=== PATIENT | male | born 1940 | race Caucasian/White ===

== ENCOUNTER 2020-02-29 06:31 | Observation (INO) | payer OTHER ==
[2020-02-24 10:16] LABS: ABSOLUTE BASOPHILS 0.1 thou/uL (0.0-0.2); ABSOLUTE EOSINOPHILS 0.1 thou/uL (0.0-0.7); ABSOLUTE LYMPHOCYTES 1.1 thou/uL (0.8-5.3); ABSOLUTE MONOCYTES 0.5 thou/uL (0.0-1.2); ABSOLUTE NEUTROPHILS 5.2 thou/uL (1.6-8.1); EOSINOPHILS 0.8 %; HEMATOCRIT 43.7 % (42.0-52.0); HEMOGLOBIN 15.1 gm/dL (14.0-18.0); LYMPHOCYTES 15.8 %; MCH 31.3 pg (26.0-34.0); MCHC 34.4 g/dL (28.0-37.0); MCV 90.9 fL (80.0-100.0); MONOCYTES 7.4 %; MPV 8.9 fl. (7.2-11.1); NUCLEATED RBCS 0 /100WBC; PLATELET COUNT* 165 thou/uL (150-400); RBC 4.81 mil/uL (4.50-6.00); RDW-CV 14.4 % (10.5-14.5); WBC 6.9 thou/uL (4.0-11.0)
[2020-02-24 10:27] LABS: APTT 27.7 Seconds (25.0-31.3); PROTIME 10.7 Seconds (9.20-11.50)
[2020-02-24 10:30] LABS: ALBUMIN 3.4 g/dL (3.4-5.0); CALCIUM 8.8 mg/dL (8.5-10.1); CREATININE 1.3 mg/dL (0.6-1.3); POTASSIUM 4.1 mmol/L (3.5-5.1); TOTAL BILIRUBIN 0.8 mg/dL (<0.1-1.0); TOTAL PROTEIN 7.3 g/dL (6.4-8.2)
[2020-02-24 11:21] LABS: ESR (SEDRATE) 8 mm/hr (0-20)
--- NOTE | 2020-02-24 14:19 | EKG ---
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1940 Requested By: Deshawn Hargrove Order Number: [id number] Brie MD: Brandon Joshi Measurements Intervals [place] Rate: 71 P: 22 CO: 199 QRS: -47 QRSD: 89 T: -12 QT: 363 QTc: 395 Interpretive Statements Sinus rhythm low voltage Atrial premature complex Probable anterolateral infarct, old Compared to ECG 08/30/2016 08:15:49 Atrial premature complex(es) now present Myocardial infarct finding now present Electronically Signed On 02-24-2020 14:18:03 CDT by Brandon Joshi [email or web address] <ELECTRONICALLY SIGNED> By: Brandon Joshi MD, [facility] 02/24/20 1418 1031 1031 Brandon Joshi MD, [facility] /EPI
[2020-02-25 02:07] LABS: GLYCOHEMOGLOBIN (HGB A1C) 5.3 % (4.8-5.6)
[~2020-02-29] VITALS: Ht 172.7 cm; Wt 88.5 kg
--- NOTE | ~2020-02-29 | OP ---
[address] [place] [address] OPERATIVE REPORT Name: SHIVA ARMAS Room: [address] M.R.#: [id number] Admission: 02/29/20 Attend Phys: Deshawn Hargrove DO Discharge: Date of : 38 Report #: [id number] THIS REPORT FOR: //name// cc: Singh Patel MD, Bruce D. MD ~ THIS REPORT FOR: //name// CC: Singh Hargrove DICTATED BY: Travis Kohler DO DATE OF SERVICE: 02/29/2020 PREOPERATIVE DIAGNOSIS: Right hip advanced degenerative joint disease. POSTOPERATIVE DIAGNOSIS: Right hip advanced degenerative joint disease. PROCEDURE PERFORMED: Right total hip arthroplasty. SURGEON: Deshawn Hargrove DO SEMICONDUCTOR PACKAGE SYMBOL STAMPER: Travis Kohler DO SECOND MEDICAL COLLECTOR: Mitch Flannery DO ANESTHESIA: Spinal with moderate sedation. SURGERY PERFORMED: Right total hip arthroplasty. ESTIMATED BLOOD LOSS: 250 mL. COMPLICATIONS: None. SPECIMENS: None. CONDITION: Stable to PACU. ORTHOPEDIC IMPLANTS: Biomet total hip system was utilized with the following components: 1. Size 56 mm finned acetabular shell. 2. A 40 mm high wall acetabular liner. 3. Size 12 high offset Microplasty Taperloc femoral stem. 4. A 40 mm head with a -6 taper adaptor neck length. INDICATIONS FOR PROCEDURE: The patient is a pleasant 80-year-old male who has [address] [place] [address] OPERATIVE REPORT Name: SHIVA ARMAS Room: [address] M..#: [id number] Admission: 02/29/20 Attend Phys: Deshawn Hargrove DO Discharge: Date of : 38 Report #: [id number] been followed in the outpatient orthopedic clinic regarding longstanding right hip pain. X-rays and clinical exam are suggestive of advanced degenerative joint disease of the right hip. We discussed treatment including surgical intervention with total hip arthroplasty due to the severity of his arthritis. We discussed risks, benefits, complications, alternatives with the patient in detail. He wished to proceed. He expressed understanding of the associated risks, which include but are not limited to bleeding, DVT/PE infection, periprosthetic fracture, continued hip pain, instability/dislocation complications of anesthesia and even . DESCRIPTION OF PROCEDURE: The patient was transferred to the operating suite and placed on the operating table in supine position. He was given the benefit of general anesthesia. He was then placed into the [place] traction table. The right hip was then prepped and draped in the usual sterile fashion. A timeout was taken to confirm the appropriate patient identification, operative site and procedure to be performed. All in the room were in agreement with timeout. Procedure began by incising skin with 2 fingerbreadths distal and 2 fingerbreadths lateral to the ASIS. Dissection was carried down using electrocautery through the subcutaneous tissue for hemostasis. The iliotibial band was encountered. A fresh scalpel blade was used to incise the iliotibial band in line with our skin incision. We then developed an interval between the tensor fascia kenn and the sartorius. The circumflex vessels were identified and cauterized using Aquamantys. Dissection was then carried down further to the level of the joint capsule. Appropriate retractors were placed. The capsule was treated with Aquamantys. The capsulectomy was then performed. The femoral neck cut was then made using a sagittal saw to the appropriate length. Attention was then addressed to the acetabulum. Further soft tissue was debrided along the acetabular rim including the acetabular labrum. There were large osteophytes at the superior portion of the acetabulum that were also debrided. The acetabulum was then sequentially reamed under C-arm fluoroscopy to the appropriate depth and position. The acetabulum was then irrigated. Final finned acetabular shell was then impacted into position using the positioning guide for appropriate inclination and version. Two acetabular screws were then drilled and placed followed by the high wall acetabular liner. A C-arm image was obtained, which demonstrated appropriate position of the acetabulum. Attention was then addressed to the femur where further release was performed along the medial and posterior aspect of the femur to allow for appropriate mobilization. Retractors were placed. The patient's leg was then carefully extended and externally rotated. The femoral canal was then sequentially broached to a size 12 mm Microplasty stem. Trial reduction was performed using a size 12 stem, high offset neck, and -6 length. The hip was then taken through range of motion and was found to be stable in all [place] [address] OPERATIVE REPORT Name: SHIVA SOLIMAN Room: [address] Liv Collins#: [id number] Admission: 02/29/20 Attend Phys: Deshawn Hargrove DO Discharge: Date of : 39 Report #: [id number] subluxation or dislocation. C-arm images were obtained, which confirmed appropriate leg lengths and good position of our orthopedic implants. Trial implants were then removed. The hip was again irrigated. A topical vancomycin powder was applied. The final size 12 mm high offset stem was then impacted into position along with a -6 taper adapter, 40 mm femoral head. The IT band was then closed using a running #1 Stratafix. Subcutaneous tissue was closed using 2-0 Vicryl. Final skin closure was performed using a running 3-0 Stratafix followed by skin glue. Sterile dressings were applied. Needle and sponge counts were correct at the end of procedure x 2. The patient was transferred to PACU in stable condition. ATTESTATION: Dr. Hargrove was present and scrubbed in through the entirety of the case. By: [id number] 1029Robnii Hargrove DO /harjeet
[~2020-02-29 06:31] MED LIST: ALEVE PM CAPLE1 EACH PO; ASPIRIN EC81 M1 PO; ASPIRIN325 PO; CALCIUM 600 +1 EAC1 PO; CENTRUM SILVER1 EAC2 PO; COLACE100 MG PO; ENOXAPARIN40 MG/0.1 SUBQ; FISH OIL 1,2001 EAC4 PO; FLOMAX0.4 MG PO; GLUCOSAMINE HC500 MG PO; HYDROCODONE-AP1 EAC6 PO; LOSARTAN-HCTZ1 EAC1 PO; NAPROSYN500 MG PO; NORVASC10 MG PO; OXYBUTYNIN 5 MG5 M2 PO; OXYCODONE HCL 55 MG PO; PERCOCET PO; PROSCAR 5MG TABL5 MG PO; PROTONIX40 M1 PO; VITAMIN B-12500 MCG PO; XARELTO10 MG PO
[2020-02-29 07:20] VITALS: BP 97/68
[2020-02-29 11:54] VITALS: BP 97/51
[2020-02-29 16:27] VITALS: BP 103/73
--- NOTE | 2020-02-29 16:40 | NUR ---
PT ADMITTED POST OP SURGERY. PT ALERT AND ORIENTED. PT ON ROOM AIR WITH PULSE OX IN PLACE. PT HAS HYPOTENSION POST OP. PT HAS VOIDED SMALL AMOUNT, WILL MONITOR OUTPUT. FALL RISK PRECAUTIONS IN PLACE. HOURLY ROUNDING COMPLETED. WILL CONTINUE TO MONITOR.
--- NOTE | 2020-02-29 17:08 | NUR ---
PT REMAINED ALERT AND ORIENTED. PT STILL HYPOTENSIVE BUT BP IMPROVING. PT DENIES ANY LIGHTHEADEDNESS OR DIZZINESS. PT WORKED WITH PT AND DID WELL. PAIN CONTROLLED. FALL RISK PRECAUTIONS IN PLACE. HOURLY ROUNDING COMPLETED. WILL CONTINUE TO MONITOR.
[2020-02-29 20:00] VITALS: BP 110/52
[2020-03-01] VITALS: BP 127/65
[2020-03-01 03:37] VITALS: BP 122/60
[2020-03-01 03:55] LABS: HEMATOCRIT 36.1 % (42.0-52.0); HEMOGLOBIN 12.4 gm/dL (14.0-18.0)
--- NOTE | 2020-03-01 04:40 | NUR ---
PT A&O. VSS ON RA. MEDS GIVEN ORDERED. PAIN MANAGED WITH OXY IR. DRESSING C/D/I. USES URINAL TO VOID. TEDS, SCDS IN PLACE. IVF INFUSING. CALL LIGHT WITHIN REACH. WILL CONTINUE TO MONITOR.
[2020-03-01 07:05] VITALS: BP 120/66
[2020-03-01] MEDS ORDERED: TRAMADOL 50 MG50 MG PO (08:05)
[2020-03-01] MEDS ORDERED: ELIQUIS5 MG PO (08:05)
[2020-03-01] MEDS ORDERED: OXYCODONE HCL 55 MG PO (08:05)
[2020-03-01 09:57] VITALS: BP 120/66
--- NOTE | 2020-03-01 10:10 | NUR ---
PT.TO DISCHARGE TODAY HOME WITH SELF CARE. NO THERAPIES ORDERED. RN CALLED IN [facility] TO [facility]. SHE SAID COPAY WAS $29. PT.TO RETURN HOME WITH . HAS A FWW AT HOME.
[2020-03-01 11:00] VITALS: BP 120/66
[2020-03-01 11:49] VITALS: BP 120/66
--- NOTE | 2020-03-01 11:49 | NUR ---
PT GIVEN DISCHARGE INFORMATION, CARE NOTES, AND PRESCRIPTIONS. IV REMOVED. PT BELONGINGS GATHERED. PT HAS OWN WALKER. FALL RISK PRECAUTIONS IN PLACE. HOURLY ROUNDING COMPLETED. PT LEFT VIA WHEELCHAIR WITH NURSING STAFF TO HOME.
== END 2020-03-01 12:43 | disposition home or self-care (01) ==
LOC: M.TBA 06:31 → M.ORTHSURG 06:31 → M.TBA 06:31 → M.ORTHSURG 10:02 → M.TBA 10:02 → M.PRE 11:10 → M.ORTHSURG 11:26 → M.PRE 11:33 → M.ORTHSURG 03-01 12:43
PROVIDERS: Orthopaedic Surgery; ADMIT Internal Medicine; ATTEND Internal Medicine
DX: Z03.818 Encounter for observation for suspected exposure to other biological agents ruled out (principal); M16.11 Unilateral primary osteoarthritis, right hip; I95.81 Postprocedural hypotension; I10 Essential (primary) hypertension

== ENCOUNTER 2020-05-18 17:46 | Inpatient (IN) | payer OTHER ==
[~2020-05-18] VITALS: Ht 172.7 cm; Wt 84.8 kg
--- NOTE | ~2020-05-18 | CON ---
[address] [address] CONSULTATION Name: PAWELSHIVA HOYOS Room: [address] IN .R.#: [id number] Admission: 05/18/20 Attend Phys: Boris Zavaleta MD Discharge: Date of : 39 Report #: [id number] THIS REPORT FOR: //name// cc: Singh Patel MD, Bruce D. MD ~ THIS REPORT FOR: //name// CC: Singh Hargrove CARDIOLOGY CONSULTATION HISTORY OF PRESENT ILLNESS: I was asked by Dr. Zavaleta and Dr. Martins to see this 80-year-old white male in cardiology consultation for evaluation and treatment of bradycardia last night during sleep. Of notice, this man was asymptomatic with the bradycardia and he was normotensive with the bradycardia. He was admitted 4 days ago with mental status changes. The workup was fairly unremarkable. He was found to have apparently at least 1 and possibly 2 common duct stones that were asymptomatic. No stones are supposed to hopefully be removed today. He is to get an EDG and an ERCP. He has had sinus bradycardia on and off throughout his hospitalization that has been asymptomatic and without hypotension. He does have a right bundle-branch block. He has VPCs and APCs as well. His past history includes essential hypertension. Last night, while on the monitor, he developed some episodes of bradycardia with heart rates dropping down into the 30s, although that were very brief episodes, not even sustained for more than 20 seconds. Again, he was asymptomatic. He had no chest pain. He had no abdominal pain. He did not have any nausea or vomiting. He felt quite fine. He had normal blood pressures. PAST MEDICAL HISTORY: As described above. 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 I am not convinced that he has dementia given my interactions with him, which seem quite normal. HOME MEDICATIONS: Include: 1. Amlodipine 5 mg daily. 2. Aspirin 81 mg daily. 3. Finasteride 5 mg daily. 4. Hydrochlorothiazide/triamterene 37.5/25 one capsule daily. 5. Losartan/hydrochlorothiazide 100/12.5 mg daily. 6. Oxybutynin 5 mg at bedtime. 7. Protonix 40 mg daily. 8. Flomax 0.4 [place] [address] CONSULTATION Name: SHIVA ARMAS Room: [address] IN .R.#: [id number] Admission: 05/18/20 Attend Phys: Boris Zavaleta MD Discharge: Date of : 39 Report #: [id number] ALLERGIES: He has no known allergies. SOCIAL HISTORY: He is . Does not smoke, drink or use illegal drugs. FAMILY HISTORY: Unremarkable. There is no family history of coronary artery disease. Of note is that this man himself has no history of coronary artery disease or myocardial infarction. He is not known to have had a stroke according to him. He denies diabetes or hypercholesterolemia. He does not smoke. REVIEW OF SYSTEMS: Completely negative except as per the history of present illness and past medical history. He was negative for some 45 different complaints in 14 different system categories including central nervous system, general, respiratory, cardiovascular, endocrine, gastrointestinal, genitourinary, hematologic, lymphatic, allergic, immunologic, psychiatric, musculoskeletal, skin, eyes, ears, nose, mouth and throat. PHYSICAL EXAMINATION: GENERAL: He presents as a well-developed, well-nourished white male, in no acute distress. VITAL SIGNS: His pulse is 68, respirations are 12, temperature is 98, O2 sat is 98, blood pressure is 139/79. HEENT: His head is atraumatic. Eyes are clear. NECK: Supple. There is no jugular venous distention or hepatojugular reflux. Thyroid is not enlarged. There is no adenopathy. SKIN: Warm and dry. Mucous membranes are moist. LUNGS: Clear to auscultation and percussion. HEART: Reveals normal first and second heart sound. There is soft S4. There is no S3. There are no murmurs, rubs, thrills, heaves or gallops. PMI is nondisplaced. ABDOMEN: Soft, flat and nontender. No palpable masses, no organomegaly. EXTREMITIES: Reveal no cyanosis, clubbing or edema. NEUROLOGIC: The patient mentated normally, talked normally, moved all extremities normally. LABORATORY DATA: EKG is as described above. He has had negative CTs of the head. He also had an MRI that was unremarkable except for an old right basal ganglia lacunar infarct and mild age-related atrophy. Chest x-ray showed no acute abnormalities. Troponin was not done. IMPRESSION: 1. Sinus bradycardia. It seems fairly physiologic for him. I suspect he is bradycardic at night a lot. He has been bradycardic at night during this admission. This also could have been related to some increased vagal tone associated with his gallstones. [address] [place] [address] CONSULTATION Name: SHIVA ARMAS Room: [address] IN M.R.#: [id number] Admission: 05/18/20 Attend Phys: Boris Zavaleta MD Discharge: Date of : 39 Report #: [id number] 2. VPCs. 3. APCs. 4. Right bundle branch block. 5. Essential hypertension. 6. Common duct stones. 7. Mental status change that has resolved. Note the mental status change is felt to be secondary to some degree of sepsis related to his common duct stone. RECOMMENDATION: I would simply continue his usual medical regimen. I would continue to monitor him while he is in the hospital. I think he is an acceptable risk for the proposed EDG and ERCP. I would check a troponin before that, however. Thank you very much for asking me to see the patient. If there are any questions, please feel free to contact me. By: 0908 [id number]. Louie Murrieta MD, FACC /nt
--- NOTE | ~2020-05-18 | EEG ---
[address] [address] EEG STUDY REPORT Name: SHIVA ARMASAN Room: [address] IN .#: [id number] Admission: 05/18/20 Attend Phys: Boris Zavaleta MD Discharge: Date of : 39 Report #: [id number] THIS REPORT FOR: //name// CC: Singh Hargrove This patient's EEG was done by placing the electrode by standard 10-20 system of electrode placement. Both referential and sequential montages were used for recording. Background activity in this patient's EEG is about 9 Hz and 30 microvolt. The patient became drowsy and that is associated with bilateral slowing. Photic stimulation was unremarkable. Throughout the record, no active epileptiform activity was noticed. IMPRESSION: This patient's EEG is unremarkable. No active epileptiform activity was noticed. Thank you very much for this referral. By: 1849 1856Viral Olivo MD /nt
--- NOTE | ~2020-05-18 | CON ---
[address] [address] CONSULTATION Name: SHIVA SOLIMANAN Room: [address] IN .R.#: [id number] Admission: 05/18/20 Attend Phys: Boris Zavaleta MD Discharge: Date of : 39 Report #: [id number] THIS REPORT FOR: //name// cc: Singh Patel MD, Bruce D. MD ~ THIS REPORT FOR: //name// CC: Singh Hargrove DATE OF SERVICE: 05/19/2020 HISTORY OF PRESENT ILLNESS: This 80-year-old male patient was seen by me because he does not remember part of the yesterday. There was no episode of tonic-clonic activity noticed during this episode. He had some difficulty with getting up. He was not able to ambulate, but now he is able to ambulate without any difficulty. I do not know whether it was ataxia or not, but from all indication, it looks like it was ataxia. He had a CT angiogram, which was reviewed that shows pretty good posterior circulation. Anterior circulation is not fully visualized, but the visualized portion appears unremarkable. He never had this kind of episode before. REVIEW OF SYSTEMS: Indicate that this patient does have a history of hypertension. There is a question of dementia. No history of stroke. He is not complaining of any eye, ENT, cardiac, respiratory, GI, , musculoskeletal, constitutional, dermatological, hematological, psychiatric, throat, allergic symptom associated with present symptomatology. PAST MEDICAL HISTORY: Negative for stroke. FAMILY HISTORY: Negative for any early age stroke. SOCIAL HISTORY: He does have a history of smoking cigar and drinking alcohol. PHYSICAL EXAMINATION: NEUROLOGIC: Indicates he is alert. He is responsive. He can follow simple commands. Memory is poor, but that is his baseline. Cranial nerve examination 2-12 looks unremarkable. Neuromuscular examination is difficult because of replaced knees, so the reflexes could not be elicited. Position sense is intact. Tone looks symmetrical. There is no cerebellar sign. I could not look at the fundus. Pulses are somewhat difficult to feel. CARDIAC AND RESPIRATORY: Appear noncontributory. No respiratory difficulty was noticed. VITAL SIGNS: Blood pressure is 104/53, respiration is 18, pulse is 62, temperature [place] 97.7. [place] [address] CONSULTATION Name: SHIVA ARMAS Room: [address]#: [id number] Admission: 05/18/20 Attend Phys: Boris Zavaleta MD Discharge: Date of : 39 Report #: [id number] LABORATORY DATA: WBC count is 10. He had a head CTA, which was reviewed. IMPRESSION AND PLAN: It is possible this patient had a transient ischemic attack. His CT angio is mostly unremarkable. I do not think we need to repeat that. He is already on aspirin. His LDL is 97 and therefore I recommend statin. I discussed all the options in that regard. I will get an echocardiogram and EEG also. If that is okay, I think we need to mainly watch him. I discussed all of it with the patient and the patient's and they are agreeable with that. I might mention TSH and vitamin B12 was done and they have been unremarkable. By: 1634 1753Pdusty Olivo MD /nt
--- NOTE | ~2020-05-18 | OP ---
[facility] [address] [place] [address] OPERATIVE REPORT Name: PAWELSHIVA ROMAIN Room: [address] IN .R.#: [id number] Admission: 05/18/20 Attend Phys: Boris Zavaleta MD Discharge: Date of : 39 Report #: [id number] THIS REPORT FOR: //name// cc: Singh Patel MD, Bruce D. MD ~ CC: Singh Hargrove DATE OF SERVICE: 05/24/2020 PREOPERATIVE DIAGNOSES: Cholelithiasis and choledocholithiasis. POSTOPERATIVE DIAGNOSES: Cholelithiasis and choledocholithiasis. SURGEON: Mj Sullivan DO RESEARCH ANALYST: Kehinde Finn, PGY5. OPERATION PERFORMED: Laparoscopic cholecystectomy with intraoperative cholangiogram. ANESTHESIA: General and transversus abdominis plane block. ESTIMATED BLOOD LOSS: 40 mL. SPECIMEN: Gallbladder. COMPLICATIONS: None. INDICATIONS: The patient is an 80-year-old male with cholelithiasis and choledocholithiasis. He underwent a previous ERCP. He was informed of the risks and benefits of laparoscopic cholecystectomy with risks including but not limited to bleeding, infection, bile duct injury, bowel injury, chronic diarrhea and need for open procedure. He understood these risks and decided to proceed with surgery. TECHNIQUE: After informed consent was obtained, the patient was brought to the operating room and placed in the supine position. SCDs were on and running. Preoperative antibiotics were given. General anesthesia was administered with an ET tube. The patient was prepped and draped in the usual sterile fashion. Prior to prepping and draping, bilateral transversus abdominis plane blocks were placed by anesthesia. Surgical pause was held to confirm proper patient and procedure. The patient had a history of previous umbilical hernia repair x 2, the second was with mesh. A vertical 2 cm incision was made with an 11 blade superior to his previous incision and superior to the mesh. [place] [address] OPERATIVE REPORT Name: SHIVA ARMAS Room: [address] IN [facility].#: [id number] Admission: 05/18/20 Attend Phys: Boris Zavaleta MD Discharge: Date of : 39 Report #: [id number] carried through the subcutaneous tissue using cautery until the fascia was identified and incised with cautery, elevated with 2 Rudolph clamps. Peritoneum was bluntly entered using a Sheree. The 0 [address] was used to place a stay suture at the superior and inferior aspect of the fascial incision. A 5 mm balloon Andria trocar was then introduced into the abdomen. The abdomen was insufflated. Attention was turned towards the right upper quadrant and the patient was positioned head up and right side up. A 5 mm trocar was introduced into the epigastrium under direct visualization. Two additional ports were placed in the right upper quadrant under direct visualization. The gallbladder was then elevated. The peritoneum overlying the hepatocystic triangle was incised using cautery. This plane was ____. There was some acute inflammation of the gallbladder. The cystic duct and cystic artery were then dissected with a combination of blunt dissection and cautery. There was a posterior branch of the cystic artery, which was bleeding ____ apparently dissected and the critical view of safety was obtained. The cystic duct was doubly clipped ____ adequate flow. A cholangiogram was performed. There appeared to be some filling defects distally ____. ADDENDUM Once the cholangiogram catheter was removed, the cystic duct was triply clipped and the remainder was divided using laparoscopic mona. The gallbladder was then elevated and dissected free from the liver bed using cautery. Once completely freed, it was placed within the EndoCatch bag and placed aside. Liver bed was inspected. Cautery was used for hemostasis. There was a small amount of oozing at the hepatocystic triangle. There was no readily identifiable vessel that could be cauterized. Surgicel was used to assist with hemostasis. Four sheets from a single sheet were placed into the liver bed and the hepatocystic triangle. The clips were hemostatic. The cystic duct stump was hemostatic. There was no additional bleeding. After Surgicel was placed. The right upper quadrant was dry. It was thoroughly irrigated and suctioned. The patient was positioned supine. All trocars were removed under direct visualization. The gallbladder was removed through the EndoCatch bag in the umbilical incision. Previous stay sutures were elevated. Two additional phvvyq-th-yvzik using 0 Vicryl was used to close the fascia. All skin was closed using Monocryl. The umbilical incision was closed in layered fashion using 3-0 Vicryl, 4-0 Monocryl. Wounds were cleansed and dressed with Dermabond. All counts were correct. The patient was emerged from anesthesia and transferred to the PACU in stable condition. By: 1004 Rosa Finn DO /harjeet
[~2020-05-18 17:46] MED LIST changes: +ELIQUIS5 MG PO; +TRAMADOL 50 MG50 MG PO
[2020-05-18 17:52] VITALS: BP 114/92
[2020-05-18] MEDS ORDERED: PROSCAR 5MG TABL5 M1 PO (18:09)
[2020-05-18] MEDS ORDERED: LOSARTAN-HCTZ1 EAC2 PO (18:09)
[2020-05-18] MEDS ORDERED: NORVASC5 MG PO (18:09)
[2020-05-18] MEDS ORDERED: TRIAMTERENE/HCT1 CA1 PO (18:10)
[2020-05-18] MEDS ORDERED: PROTONIX40 M2 PO (18:10)
[2020-05-18] MEDS ORDERED: OXYBUTYNIN 5 MG5 M2 PO (18:10)
[2020-05-18] MEDS ORDERED: FLOMAX0.4 MG PO (18:10)
[2020-05-18 18:33] LABS: HEMATOCRIT 41.8 % (42.0-52.0); HEMOGLOBIN 14.3 gm/dL (14.0-18.0); MCHC 34.1 g/dL (28.0-37.0); MCV 87.9 fL (80.0-100.0); MPV 8.4 fl. (7.2-11.1); NUCLEATED RBCS 0 /100WBC; PLATELET COUNT* 203 thou/uL (150-400); RBC 4.76 mil/uL (4.50-6.00); RDW-CV 15.5 % (10.5-14.5)
[2020-05-18 18:42] LABS: CALCIUM 8.6 mg/dL (8.5-10.1); CREATININE 1.5 mg/dL (0.6-1.3); POTASSIUM 4.4 mmol/L (3.5-5.1)
[2020-05-18 18:45] LABS: APTT 25.3 Seconds (25.0-31.3); INR 1.1; PROTIME 11.2 Seconds (9.20-11.50)
[2020-05-18 18:49] LABS: ALBUMIN 2.6 g/dL (3.4-5.0); TOTAL PROTEIN 7.3 g/dL (6.4-8.2)
[2020-05-18 18:54] LABS: ACETAMINOPHEN < 2 ug/mL (10-30); ALCOHOL < 10 mg/dL (<10); SALICYLATE < 2.8 mg/dL (2.8-20.0)
[2020-05-18 19:04] LABS: ABSOLUTE EOSINOPHILS 0.1 thou/uL (0.0-0.7); ABSOLUTE LYMPHOCYTES 0.4 thou/uL (0.8-5.3); ABSOLUTE MONOCYTES 0.9 thou/uL (0.0-1.2); ABSOLUTE NEUTROPHILS 8.6 thou/uL (1.6-8.1)
[2020-05-18 19:05] LABS: PLATELET ESTIMATE ADEQUATE
[2020-05-18 19:06] LABS: ANISOCYTOSIS Occasional
[2020-05-18 19:48] LABS: URINE BILIRUBIN NEGATIVE (Negative); URINE BLOOD NEGATIVE (Negative); URINE CLARITY CLEAR; URINE COLOR YELLOW; URINE GLUCOSE-RANDOM NEGATIVE (Negative); URINE KETONES NEGATIVE (Negative); URINE LEUKOCYTES-REFLEX NEGATIVE (Negative); URINE NITRITE-REFLEX NEGATIVE (Negative); URINE PROTEIN NEGATIVE (Negative); URINE UROBILINOGEN 0.2 E.U./dl (0.2-1.0)
[2020-05-18 19:55] LABS: AMP/METHAMP Negative (Negative); BARBITURATES Negative (Negative); BENZODIAZEPINES Negative (Negative); COCAINE Negative (Negative); METHADONE Negative (Negative); OPIATES Negative (Negative); PCP Negative (Negative); THC Negative (Negative)
[2020-05-18 22:30] VITALS: BP 109/57
[2020-05-18 22:48] VITALS: BP 98/56
[2020-05-18] MEDS ORDERED: ASA81BEC PO (23:50)
[2020-05-19] VITALS: BP 168/81
--- NOTE | 2020-05-19 02:15 | NUR ---
PT ALERT ORIENTED. NIH SS 0. UP TO BR WITH ASSIST OF ONE. TELEMETRY SHOWS SR BBB. CALLED FOR VERIFICATION ON MEDICATIONS. NS AT 70. WCTM
--- NOTE | 2020-05-19 02:47 | NUR ---
PT HR DOWN TO 48 WHILE SLEEPING. REMAINS SINUS.
[2020-05-19 04:00] VITALS: BP 102/54
[2020-05-19 08:00] VITALS: BP 109/52
[2020-05-19 08:56] LABS: ALBUMIN 2.2 g/dL (3.4-5.0); CALCIUM 7.7 mg/dL (8.5-10.1); CREATININE 1.4 mg/dL (0.6-1.3); MAGNESIUM 1.9 mg/dL (1.8-2.4); TOTAL BILIRUBIN 1.2 mg/dL (<0.1-1.0); TOTAL PROTEIN 5.7 g/dL (6.4-8.2)
--- NOTE | 2020-05-19 09:10 | NUR ---
CM SPOKE TO THE PT TO DISCUSS HIS HOME SITUATION, DISCHARGE PLANNING, AND TO INFORM OF THE ROLE OF CM. PT A&O, AND NORMALLY INDEPENDENT WITH ADL'S. PT RESIDES AT HOME WITH SPOUSE. PT USES A CANE FOR MOBILITY, BUT ALSO OWNS A WALKER AND STOOL RISER. PT HAS HX OF HH WITH [facility]. PT HAS 0 HX OF SNF. CM WILL REMAIN AVAILABLE TO ASSIST AND FOLLOW NEEDED.
[2020-05-19 11:33] VITALS: BP 101/51
--- NOTE | 2020-05-19 13:04 | EKG ---
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1940 Requested By: Shayla Juarez Order Number: [id number] MD: Isaac Lewis Measurements Intervals [place] Rate: 87 P: 36 OK: 176 QRS: 133 QRSD: 138 T: -43 QT: 369 QTc: 444 Interpretive Statements Sinus rhythm Atrial premature complex RBBB and LPFB Baseline wander in lead(s) V2 Compared to ECG 02/24/2020 10:31:40 Left posterior fascicular block now present Right bundle-branch block now present Myocardial infarct finding no longer present Electronically Signed On 05-19-2020 13:03:57 CDT by Isaac Lewis [email or web address] <ELECTRONICALLY SIGNED> By: Isaac Lewis MD, [facility] 05/19/20 1303 10 10 Isaac Lewis MD, [facility] /EPI
[2020-05-19 16:07] VITALS: BP 104/53
[2020-05-19 20:00] VITALS: BP 126/72
[2020-05-20] VITALS: BP 105/60
--- NOTE | 2020-05-20 02:40 | NUR ---
PT ALERT ORIENTED. UP TO BR WITH STD BY ASSIST AND WALKER. TELEMETRY SHOWS SR BBB. NS AT 70MLS/HR. VOIDS DK YELLOW PER URINAL. WCTM
[2020-05-20 04:00] VITALS: BP 158/62
[2020-05-20 04:59] LABS: HEMATOCRIT 34.8 % (42.0-52.0); MCH 30.3 pg (26.0-34.0); MCHC 34.3 g/dL (28.0-37.0); MCV 88.5 fL (80.0-100.0); MPV 8.9 fl. (7.2-11.1); RBC 3.93 mil/uL (4.50-6.00); RDW-CV 15.4 % (10.5-14.5); WBC 7.1 thou/uL (4.0-11.0)
[2020-05-20 05:06] LABS: HEMOGLOBIN 11.9 gm/dL (14.0-18.0)
[2020-05-20 05:22] LABS: CALCIUM 7.7 mg/dL (8.5-10.1); CREATININE 1.2 mg/dL (0.6-1.3); MAGNESIUM 1.7 mg/dL (1.8-2.4); POTASSIUM 3.3 mmol/L (3.5-5.1); TOTAL BILIRUBIN 0.8 mg/dL (<0.1-1.0); TOTAL PROTEIN 5.9 g/dL (6.4-8.2)
[2020-05-20 07:08] LABS: HEPATITIS B SURFACE AG Negative (Negative)
[2020-05-20 08:00] VITALS: BP 120/65
--- NOTE | 2020-05-20 08:00 | NUR ---
ASSUMED CARE OF PATIENT THIS MORNING FROM NIGHT NURSE. PT IS DOING WELL AND IS UP WITH ASSISTANCE. HE WAS EDUCATED ON FALL SAFETY AND USING THE CALL LIGHT FOR ASSISTANCE. HIS BED IS IN THE LOWEST POSITION AND THE CALL LIGHT FOR REACH. BED ALARM IS ON, WILL CONTINUE TO MONITOR.
[2020-05-20 12:00] VITALS: BP 100/58
--- NOTE | 2020-05-20 14:19 | 2DMMODE ---
[place] [address] 2 D/M-MODE ECHOCARDIOGRAM Name: SHIVA ARMAS Room: [address] IN [facility]#: [id number] Admission: 05/18/20 Attend Phys: Boris Zavaleta, Discharge: Date of : 38 Date of Service: 05/20/20 1419 Report #: [id number] THIS REPORT FOR: cc: Singh Patel MD, Bruce D. MD Blick,Brandon Parikh MD [facility] ~ ADDENDUM APPROVED REPORT Study performed: 05/20/2020 11:43:53 EXAM: Comprehensive 2D, Doppler, and color-flow Echocardiogram Patient Location: In-Patient Room #: [facility] Status: routine BSA: 1.95 HR: 50 bpm BP: 158/62 mmHg Rhythm: NSR Other Information Study Quality: Good Indications CVA/TIA Echo Enhancing Agent Indication: Rule out Shunt Agent(s) / Amount(s) Used: Agitated Saline 10 cc 2D Dimensions IVSd: 14.42 (7-11mm) LVOT Diam: 19.42 (18-24mm) LVDd: 51.34 mm PWd: 12.41 (7-11mm) Ascending Ao: 40.17 (22-36mm) LVDs: 36.54 (25-40mm) Aortic Root: 34.91 mm Volumes Left Atrial Volume (Systole) LA ESV Index: 32.60 mL/m2 Aortic Valve AoV Peak Terry.: 1.79 m/s AO Peak Gr.: 12.82 mmHg LVOT Max P.53 mmHg AO Mean Gr.: 6.80 mmHg LVOT Mean P.88 [place] [address] 2 D/M-MODE ECHOCARDIOGRAM Name: SHIVA ARMAS Room: [address] IN .R.#: [id number] Admission: 05/18/20 Attend Phys: Boris Zavaleta, Discharge: Date of : 38 Date of Service: 05/20/20 1419 Report #: [id number] LVOT Max V: 1.46 m/s AO V2 VTI: 31.08 cm LVOT Mean V: 1.04 m/s LAN (VTI): 2.64 cm2 LVOT V1 VTI: 27.69 cm Mitral Valve MV Mean Gr.: 2.33 mmHg E/A Ratio: 0.77 MV Decel. Time: 508.60 ms MV E Max Terry.: 0.98 m/s MV PHT: 147.49 ms MVA (PHT): 1.49 cm2 TDI E/Lateral E': 10.89 E/Medial E': 16.33 Medial E' Terry.: 0.06 m/s Lateral E' Terry.: 0.09 m/s Pulmonary Valve PV Peak Terry.: 1.00 m/s PV Peak Gr.: 4.02 mmHg Tricuspid Valve RAP Estimate: 5.00 mmHg TR Peak Gr.: 20.67 mmHg RVSP: 25.00 mmHg PA Pressure: 25.00 mmHg Left Ventricle The left ventricle is normal size. There is normal LV segmental wall motion. Mild concentric left ventricular hypertrophy. Left ventricular systolic function is normal. The left ventricular ejection fraction is within the normal range. LVEF is 60-65%. Grade I - abnormal relaxation pattern. Right Ventricle The right ventricle is normal size. The right ventricular systolic function is normal. Atria Left atrium is mildly dilated. The interatrial septum is intact with no evidence for an atrial septal defect. The right atrium size is normal. Aortic Valve Mild aortic valve sclerosis. No aortic regurgitation is present. There is no aortic valvular stenosis. Mitral Valve There is mitral annular calcification. [place] [address] 2 D/M-MODE ECHOCARDIOGRAM Name: SHIVA ARMAS Room: [address] IN M.R.#: [id number] Admission: 05/18/20 Attend Phys: Boris Zavaleta, Discharge: Date of : 38 Date of Service: 05/20/20 1419 Report #: [id number] structure. Mild mitral regurgitation. Moderate mitral stenosis. Tricuspid Valve The tricuspid valve is normal in structure. Trace tricuspid regurgitation. No pulmonary hypertension. Pulmonic Valve The pulmonary valve is normal in structure. There is no pulmonic valvular regurgitation. Great Vessels Aortic root is mildly dilated. IVC is normal in size and collapses >50% with inspiration. Pericardium There is no pericardial effusion. <Conclusion> Mild concentric left ventricular hypertrophy. LVEF is 60-65%. Left atrium is mildly dilated. Mild aortic valve sclerosis. Mild mitral regurgitation. The interatrial septum is intact with no evidence for an atrial septal defect. <ELECTRONICALLY SIGNED> By: Brandon Joshi MD, FACC 05/20/20 1419 18 18 Brandon Joshi MD, FACC /INF
--- NOTE | 2020-05-20 15:36 | NUR ---
CM SPOKE TO THE PT TO DISCUSS DISCHARGE PLANNING. PT INFORMS THAT HE DOES NOT BELIEVE THAT HE WILL HAVE D/C PLANNING NEEDS. POSSIBLE THAT PT MAY D/C TOMORROW. CM WILL REMAIN AVAILABLE TO ASSIST AND FOLLOW NEEDED.
[2020-05-20 15:46] VITALS: BP 119/69
[2020-05-20 20:15] VITALS: BP 111/65
[2020-05-21] VITALS (7 sets, daily range): BP systolic 92–137; BP diastolic 44–75
[2020-05-21 02:06] LABS: GLYCOHEMOGLOBIN (HGB A1C) 4.9 % (4.8-5.6)
--- NOTE | 2020-05-21 05:07 | NUR ---
PT UP IN CHAIR AT START OF SHIFT, SETTING OFF CHAIR ALARM TRYING TO GET UP TO USE URINAL. AOX4, FORGETFUL, PLEASANT. SLEPT WELL OVERNIGHT, TELE SR BBB, FALSE ASYSTOLE ALARMING AT TIMES. SL IV. ROOM AIR. HAS BEEN NPO SINCE MIDNIGHT FOR ABD CT TODAY. DENIES PAIN OR PROBLEMS. ABLE TO USE CALL LITE AND MAKE NEEDS KNOWN. INSTRUCTED TO USE CALL LIGHT AFTER VOIDING FOR BLADDER SCAN. CALL LITE IN EASY REACH, BED ALARM ON FOR SAFETY.
[2020-05-21 05:09] LABS: ABSOLUTE BASOPHILS 0.1 thou/uL (0.0-0.2); ABSOLUTE EOSINOPHILS 0.2 thou/uL (0.0-0.7); ABSOLUTE LYMPHOCYTES 1.6 thou/uL (0.8-5.3); ABSOLUTE MONOCYTES 0.5 thou/uL (0.0-1.2); ABSOLUTE NEUTROPHILS 5.1 thou/uL (1.6-8.1); BASOPHILS 0.8 %; HEMOGLOBIN 12.1 gm/dL (14.0-18.0); LYMPHOCYTES 21.8 %; MCH 29.6 pg (26.0-34.0); MCHC 33.7 g/dL (28.0-37.0); MCV 87.8 fL (80.0-100.0); MPV 8.7 fl. (7.2-11.1); NUCLEATED RBCS 0 /100WBC; PLATELET COUNT* 177 thou/uL (150-400); POLYS 67.4 %; RDW-CV 15.8 % (10.5-14.5); WBC 7.5 thou/uL (4.0-11.0)
[2020-05-21 05:17] LABS: CALCIUM 7.6 mg/dL (8.5-10.1); CREATININE 1.1 mg/dL (0.6-1.3); MAGNESIUM 1.6 mg/dL (1.8-2.4); POTASSIUM 3.9 mmol/L (3.5-5.1); TOTAL BILIRUBIN 0.7 mg/dL (<0.1-1.0); TOTAL PROTEIN 6.1 g/dL (6.4-8.2)
[2020-05-21 06:08] LABS: ALBUMIN 2.1 g/dL (3.4-5.0); DIRECT BILIRUBIN 0.6 mg/dL (<0.1-0.3); TOTAL BILIRUBIN 0.7 mg/dL (<0.1-1.0); TOTAL PROTEIN 5.8 g/dL (6.4-8.2)
[2020-05-21 10:04] LABS: CHOLESTEROL 137 mg/dL (<200); HDL CHOLESTEROL 34 mg/dL (>40); LDL CHOLESTEROL 89 mg/dL (<100); TRIGLYCERIDE 72 mg/dL (<150); VLDL 14 mg/dL (<40)
[2020-05-21 10:15] LABS: SERUM ASSESSMENT Clear
--- NOTE | 2020-05-21 18:37 | NUR ---
PT UP IN CHAIR MOST OF SHIFT.PT DENIES PAIN. TOLERATING PO WELL. AT BS AND UPDATED ON PLAN OF CARE. IVF INFUSING. EGD AND ERCP PLANNED IN AM
[2020-05-22] VITALS (37 sets, daily range): BP systolic 107–150; BP diastolic 48–83
--- NOTE | 2020-05-22 03:11 | NUR ---
RECEIVED REPORT AND ASSUMED CARE AT 1900.VSS. CARDIAC MONITORING IN PLACE. PT DENIES ANY COMPLAINTS OF PAIN. ASSESSMENT COMPLETED CHARTED. DISCUSSED PLAN OF CARE, VERBALIZED UNDERSTANDING. PT REFUSING SCD'S, EDUCATED ON RISK FOR NOT WEARING. PT VERBALIZED UNDERSTANDING, STILL REFUSES. DURING SHIFT PT CARDIAC RHYTHM CHANGED. APPEARED ON CRUMB PACKER IDIOVENTRICULAR, AND ACCELERATED IDIOVENTRICULAR. ALSO BIGEMINY AND TRIGEMINY. HR LOW 30BPM.DENIES COMPLAINTS OF PAIN. BP STABLE.PHYSICIAN NOTIFIED. CARDIOLOGY CONSULT, TRANSFER TO ICU. EKG OBTAINED, RESULTS COMMUNICATED TO PHYSICIAN AND MECHANICAL ENERGY ENGINEER. CONSULT CALLED. PER CARDS, HOLD BP MEDICATION AND CONTINUE TO MONITOR. PATIENT BELONGINGS GATHERED AND TRANSFERRED BY NURSING TO ICU BED 5.
[2020-05-22 03:39] LABS: ABSOLUTE BASOPHILS 0.1 thou/uL (0.0-0.2); ABSOLUTE EOSINOPHILS 0.2 thou/uL (0.0-0.7); ABSOLUTE LYMPHOCYTES 1.9 thou/uL (0.8-5.3); ABSOLUTE MONOCYTES 0.5 thou/uL (0.0-1.2); ABSOLUTE NEUTROPHILS 4.3 thou/uL (1.6-8.1); BASOPHILS 0.8 %; EOSINOPHILS 3.4 %; HEMOGLOBIN 12.5 gm/dL (14.0-18.0); LYMPHOCYTES 27.7 %; MCH 29.6 pg (26.0-34.0); MCHC 33.8 g/dL (28.0-37.0); MCV 87.7 fL (80.0-100.0); MONOCYTES 7.2 %; MPV 8.8 fl. (7.2-11.1); NUCLEATED RBCS 0 /100WBC; PLATELET COUNT* 194 thou/uL (150-400); POLYS 60.9 %; RBC 4.22 mil/uL (4.50-6.00); RDW-CV 15.4 % (10.5-14.5)
[2020-05-22 03:49] LABS: ALBUMIN 2.3 g/dL (3.4-5.0); CALCIUM 8.1 mg/dL (8.5-10.1); CREATININE 1.2 mg/dL (0.6-1.3); DIRECT BILIRUBIN 0.5 mg/dL (<0.1-0.3); MAGNESIUM 1.7 mg/dL (1.8-2.4); PHOSPHORUS* 2.4 mg/dL (2.5-4.9); POTASSIUM 3.5 mmol/L (3.5-5.1); TOTAL BILIRUBIN 0.7 mg/dL (<0.1-1.0); TOTAL PROTEIN 6.3 g/dL (6.4-8.2)
--- NOTE | 2020-05-22 06:53 | NUR ---
RECIVED PT FROM TELE PAST 0200H, ON RA AND TOLERATED. HOOKED TO HAND NAILER AND WITH PVC'S,BRADYCARDIA AND PAUSE'S. NO COMPLAIN OF CHEST PAIN AND DIZZINESS. PB WITHIN NORMAL. MONITOR IS ALWAYS ALARMING WITH VENTRICULAR BRADYCARDIA. EKG DONE, SINUS RYTHYM WITH RBBB. NO CHEST PAIN. ELECTOLYTES REPLACED. BS AT 70, D50% 50ML GIVEN. CONTINUE MONITORING AND TOWARD GOALS. KEPT NPO, FOR EGD AND ECRP TODAY.
[2020-05-22 08:11] LABS: POTASSIUM 3.1 mmol/L (3.5-5.1)
--- NOTE | 2020-05-22 17:05 | NUR ---
PATIENT PROGRESSING TOWARDS GOALS. NOT BRADYCARDIC. TOLERATED GI PROCEDURE AND NOW ABLE TO EAT, RESOLVING HYPOGLYCEMIA. LABS NOTED AND WILL REDRAW POTASSIUM. SURGEON AND FAMILY DISCUSSING PLANS TO REMOVE GALLBLADDER. PT IS NOW TELE STATUS
--- NOTE | 2020-05-22 21:31 | NUR ---
RECEIVED REPORT AND ASSUMED CARE AT 1900. VSS. CARDIAC MONITORING IN PLACE. PT DENIES COMPLAINTS OF PAIN. ASSESSMENT COMPLETED CHARTED. DISCUSSED PLAN OF CARE. PM MEDICATION ADMIN PER EMAR. PT TELE STATUS, TO TRANSFER TO TELE FLOOR. PT AWARE. REPORT GIVEN TO MOTOR GRADER OPERATOR. TRNASPORTED BY NURSING TO ROOM 219.
[2020-05-23 01:00] VITALS: BP 122/61
[2020-05-23 04:00] VITALS: BP 120/54
[2020-05-23 04:31] LABS: HEMATOCRIT 34.3 % (42.0-52.0); HEMOGLOBIN 11.7 gm/dL (14.0-18.0); MCHC 34.1 g/dL (28.0-37.0); RBC 3.9 mil/uL (4.50-6.00); RDW-CV 15.5 % (10.5-14.5); WBC 6.9 thou/uL (4.0-11.0)
[2020-05-23 04:47] LABS: ALBUMIN 1.9 g/dL (3.4-5.0); CALCIUM 7.7 mg/dL (8.5-10.1); CREATININE 1.3 mg/dL (0.6-1.3); POTASSIUM 4.6 mmol/L (3.5-5.1); TOTAL BILIRUBIN 0.5 mg/dL (<0.1-1.0); TOTAL PROTEIN 5.5 g/dL (6.4-8.2)
--- NOTE | 2020-05-23 05:43 | NUR ---
No acute event this shift. Pt received from ICU around 2200. I agree with [facility] physical therapist. Pt no complains of pain overnight. Pt still Sinus riaz on tele, lowest rate at 30's (non sustain). IVF infusing as ordered. Hourly rounding observed, safety measures in placed. Pt reminded to use call light for assistance.
[2020-05-23 08:00] VITALS: BP 128/60
[2020-05-23 14:33] VITALS: BP 120/59
--- NOTE | 2020-05-23 15:48 | NUR ---
CM CONTINUING TO FOLLOW TO ASSIST WITH D/C PLANNING NEEDS. NURING INFORMS OF PLAN FOR PT TO POSSIBLY HAVE LAP JADE. CM SPOKE TO PT TO ASSESS D/C PLANNING NEEDS. PT DOES NOT ANTICIPATE ANY NEEDS. CM WILL REMAIN AVAILABLE TO ASSIST AND FOLLOW NEEDED.
[2020-05-23 16:00] VITALS: BP 118/62
--- NOTE | 2020-05-23 17:37 | EKG ---
[place] [address] ELECTROCARDIOGRAM REPORT Name: SHIVA ARMAS Room: [address] ADM IN M.R.#: [id number] Admission: 05/18/20 Attend Phys: Boris Zavaleta, Discharge: Date of : 38 Date of Service: 05/22/20 0135 Report #: [id number] THIS REPORT FOR: //name// 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 : 1940 Requested By: Devin Martins Order Number: [id number] Brie MD: Isaac Lewis Measurements Intervals [place] Rate: 52 P: 3 MD: 193 QRS: 52 QRSD: 143 T: -39 QT: 450 QTc: 419 Interpretive Statements Sinus rhythm Right bundle branch block Inferior infarct, age indeterminate Compared to ECG 05/18/2020 18:11:27 Myocardial infarct finding now present Atrial premature complex(es) no longer present Left posterior fascicular block no longer present Electronically Signed On 05-23-2020 17:37:39 CDT by Isaac Lewis [email or web address] <ELECTRONICALLY SIGNED> By: Isaac Lewis MD, FACC 05/23/20 1737 Isaac Lewis MD, FAC /EPI
--- NOTE | 2020-05-23 17:38 | EKG ---
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: [id number] : 1940 Requested By: Boris Zavaleta Order Number: [id number] Brie MD: Isaac Lewis Measurements Intervals [place] Rate: 50 P: -19 MD: 170 QRS: 25 QRSD: 151 T: -42 QT: 450 QTc: 411 Interpretive Statements Sinus rhythm Right bundle branch block Inferior infarct, old, possible Compared to ECG 05/22/2020 01:35:55 No significant changes noted Electronically Signed On 05-23-2020 17:38:49 CDT by Isaac Lewis [email or web address] <ELECTRONICALLY SIGNED> By: Isaac Lewis MD, FACC 05/23/20 1738 0455 0455 Isaac Lewis MD, FAC /EPI
[2020-05-23 19:30] VITALS: BP 149/74
[2020-05-24] VITALS (9 sets, daily range): BP systolic 138–170; BP diastolic 51–91
[2020-05-24 04:56] LABS: ABSOLUTE EOSINOPHILS 0.2 thou/uL (0.0-0.7); ABSOLUTE LYMPHOCYTES 1.9 thou/uL (0.8-5.3); ABSOLUTE MONOCYTES 0.5 thou/uL (0.0-1.2); ABSOLUTE NEUTROPHILS 4.4 thou/uL (1.6-8.1); BASOPHILS 0.7 %; EOSINOPHILS 3.3 %; HEMATOCRIT 34.8 % (42.0-52.0); HEMOGLOBIN 11.9 gm/dL (14.0-18.0); MCH 30.1 pg (26.0-34.0); MCHC 34.1 g/dL (28.0-37.0); MCV 88.3 fL (80.0-100.0); MONOCYTES 6.6 %; MPV 8.6 fl. (7.2-11.1); NUCLEATED RBCS 0 /100WBC; PLATELET COUNT* 167 thou/uL (150-400); POLYS 62.4 %; RBC 3.94 mil/uL (4.50-6.00); RDW-CV 15.6 % (10.5-14.5)
[2020-05-24 05:19] LABS: ALBUMIN 2.1 g/dL (3.4-5.0); CALCIUM 7.6 mg/dL (8.5-10.1); CREATININE 1.2 mg/dL (0.6-1.3); POTASSIUM 4.2 mmol/L (3.5-5.1); TOTAL BILIRUBIN 0.6 mg/dL (<0.1-1.0)
--- NOTE | 2020-05-24 05:54 | NUR ---
Assumed pt's care this pm shift. Pt alert and oriented. VSS on RA. Meds given per emar. Pt's bg @ hs was 64. Hypoglycemia protocol intiated. BG came up to 152. Pt NPO at midnight. Lap jalil today. Consents signed and in the chart. Pt slept well this shift. Denied pain this shift. Voided via urinals. Call light within reach. Fall precaution in place. Will continue to monitor.
[2020-05-25] VITALS (7 sets, daily range): BP systolic 99–154; BP diastolic 55–81
[2020-05-25 04:48] LABS: HEMATOCRIT 37.4 % (42.0-52.0); HEMOGLOBIN 12.6 gm/dL (14.0-18.0); MCH 29.5 pg (26.0-34.0); MCHC 33.7 g/dL (28.0-37.0); MCV 87.5 fL (80.0-100.0); MPV 8.8 fl. (7.2-11.1); RBC 4.27 mil/uL (4.50-6.00); RDW-CV 15.4 % (10.5-14.5); WBC 11.9 thou/uL (4.0-11.0)
[2020-05-25 05:18] LABS: ALBUMIN 2.1 g/dL (3.4-5.0); CALCIUM 7.9 mg/dL (8.5-10.1); CREATININE 1.2 mg/dL (0.6-1.3); POTASSIUM 4.7 mmol/L (3.5-5.1); TOTAL BILIRUBIN 0.6 mg/dL (<0.1-1.0)
--- NOTE | 2020-05-25 06:41 | NUR ---
ASSESSMENT COMPLETED AT BEDSIDE, PLEASE REFER TO CHARTING FOR DETAILS. MEDICATIONS ADMINISTERED PER MAR. HOURLY ROUNDING FOR PT SAFETY. C/O PAIN TO ABD TREATED WITH PRN MEDICATIONS. NO OTHER CONCERNS NOTED AT THIS TIME. CURRENTLY AWAKE IN BED WITH BED ALARM ON AND CALL LIGHT WITHIN REACH.
--- NOTE | 2020-05-25 11:41 | NUR ---
Interviewed pt at bedside, present also. Discussed need for HH and requested preference for company. Have used [facility] in the past when had hip surgery and would like to use them again. Contacted [facility] and pt was accepted. She has remote access and will obtain order and discharge summary once completed. Notified anticipated date was 05/26/20.
--- NOTE | 2020-05-25 19:31 | NUR ---
pt has remained alert, oriented x 4 and cooperative with staff. spent several hours up in chair. tolerated activity well. no c/o pain or distress. diet advanced to solid foods and pt tolerated this too. potential for dismissal to home tomorrow. pt has been notified by him
[2020-05-26] VITALS: BP 154/80
[2020-05-26 04:00] VITALS: BP 145/75
[2020-05-26 05:00] LABS: ABSOLUTE EOSINOPHILS 0.1 thou/uL (0.0-0.7); ABSOLUTE LYMPHOCYTES 1.3 thou/uL (0.8-5.3); ABSOLUTE MONOCYTES 0.9 thou/uL (0.0-1.2); ABSOLUTE NEUTROPHILS 9.3 thou/uL (1.6-8.1); BASOPHILS 0.3 %; EOSINOPHILS 0.6 %; HEMATOCRIT 34.9 % (42.0-52.0); HEMOGLOBIN 11.8 gm/dL (14.0-18.0); LYMPHOCYTES 11.1 %; MCH 30.1 pg (26.0-34.0); MCHC 33.9 g/dL (28.0-37.0); MCV 88.7 fL (80.0-100.0); MONOCYTES 7.4 %; MPV 8.5 fl. (7.2-11.1); NUCLEATED RBCS 0 /100WBC; PLATELET COUNT* 157 thou/uL (150-400); POLYS 80.6 %; RBC 3.93 mil/uL (4.50-6.00); RDW-CV 15.7 % (10.5-14.5); WBC 11.5 thou/uL (4.0-11.0)
[2020-05-26 05:16] LABS: CREATININE 1.1 mg/dL (0.6-1.3); POTASSIUM 4.1 mmol/L (3.5-5.1); TOTAL BILIRUBIN 0.5 mg/dL (<0.1-1.0); TOTAL PROTEIN 5.6 g/dL (6.4-8.2)
[2020-05-26 08:00] VITALS: BP 135/76
[2020-05-26 12:07] VITALS: BP 99/55
--- NOTE | 2020-05-26 12:07 | NUR ---
[facility]ip[facility], CM fo fax dc orders once available. OT discharged Pt, awaiting PT clearance. Pt/ in agreement with POC. Following.
[2020-05-26] MEDS ORDERED: TRAMADOL 50 MG50 MG PO (12:56)
[2020-05-26] MEDS ORDERED: GENTLE LAXATIVE5 M1 PO (12:58)
[2020-05-26] MEDS ORDERED: CEFTRIAXON1 GM/50 ML IV (13:42)
[2020-05-26 16:23] VITALS: BP 128/81
--- NOTE | 2020-05-26 20:39 | NUR ---
Peripheral IV has been discontinued intact. PICC line placed today remains in place. Pt has remained alert, oriented and cooperative. Skin warm and dry to touch. Regular nonlabored respirations. Pt has been up in chair, tolerated meals. Lap sites x 4 have remained well approximated and without drainage. Pt medicated x 1 for abdominal pain this shift. I have spoken with Dr Wiley's resident, Madhav Finn and updated him on placement of picc line with order for outpatient IV antibiotic therapy. I have reviewed dismissal instructions with patient and his . I have reviewed medications, provided written rx for analgesic as prescribed by doctor. I have also instructed them to contact patient primary care doctor, environmental solutions engineer (business card provided) and Dr Wiley to schedule follow up appointments. I have also instructed patient and his to contact surgeon if lap sites begin draining or if patient develops fever or any other concerns. Pt and his verbalize instructions. Pt assisted with dressing, placed in wheelchair and taken to main entrance of hospital. I assisted pt to vehicle. Pt stable upon dismissal
--- NOTE | 2020-05-27 17:06 | PATH ---
[address] [address] PATHOLOGY RPT PROCEDURE Name: SHIVA WOOD Room: [address] IN ..#: [id number] Admission: 05/18/20 Date of : 38 Discharge: 05/26/20 Report #: [id number] Path Case #: [id number] [facility] Accession Number: [id number] . 01 Material submitted: . gallbladder - GALLBLADDER . 01 Clinician provided ICD-10: D72.00 G92 . 01 Clinical history: . CHOLECYSTITIS ALTERED MENTAL STATUS, TRASNAMINITIS . 02 Diagnosis: Gallbladder, excision: - Acute necrotizing cholecystitis, super imposed upon chronic follicular cholecystitis. - Lithiasis. - Cholesterolosis. - Negative for malignancy. (BIGG:cassie; 05/27/2020) MBR 05/27/2020 1644 Local . 02 Electronically signed: . Willa Mata MD, Pathologist NPI- [id number] . 01 Gross description: . The specimen is received in formalin, labeled "Shiva Wood, gallbladder". Received is a previously punctured gallbladder measuring 7.9 x 4.0 x 1.2 cm in greatest dimensions displaying a pink-garcia serosal surface. Opening the specimen reveals a velvety, bile-stained mucosa with a gallbladder wall thickness of 0.1 cm. Multiple minute black calculi are present, and no masses or lesions are noted grossly. Rip Saw Operator sections, to include the proximal margin, are submitted in cassette A1. (CAA; 05/25/2020) QAC/QA 05/25/2020 1057 Local . 02 Pathologist provided ICD-10: K80.12 . 02 CPT . 322593 Specimen Comment: A courtesy copy of this report has been sent to [phone] Specimen Comment: [phone], [place] [address] PATHOLOGY RPT PROCEDURE Name: PAWELSHIVA DIGNA HOYOS Room: [address] IN [facility]#: [id number] Admission: 05/18/20 Date of : 38 Discharge: 05/26/20 Report #: [id number] Path Case #: [id number] Specimen Comment: Report sent to ,DR PADRON,DR SLOAN / DR CAIN Performed at: 01 [facility] [address], [place], [place] [id number] MD Aryan Walton MD Phone: [phone] Performed at: 02 [facility] [address], [place], [place] [id number] MD Rodolfo Gomez MD Phone: [phone]
== END 2020-05-26 18:45 | disposition home health service (06) | DRG 853 ==
LOC: M.ERS 17:46 → M.TBA-ER 22:04 → M.2W 22:04 → M.ICU 05-22 02:15 → M.2W 05-22 22:50
PROVIDERS: Internal Medicine; Internal Medicine Gastroenterology; Nurse Practitioner Family; Surgery; ADMIT Internal Medicine; ATTEND Internal Medicine
DX: A41.51 Sepsis due to Escherichia coli [E. coli] (principal); K72.00 Acute and subacute hepatic failure without coma; G92 Toxic encephalopathy; N17.0 Acute kidney failure with tubular necrosis; E43 Unspecified severe protein-calorie malnutrition; B17.9 Acute viral hepatitis, unspecified; K80.51 Calculus of bile duct without cholangitis or cholecystitis with obstruction; K80.21 Calculus of gallbladder without cholecystitis with obstruction; Z96.653 Presence of artificial knee joint, bilateral; I10 Essential (primary) hypertension; R74.0 Nonspecific elevation of levels of transaminase and lactic acid dehydrogenase [LDH]; I45.10 Unspecified right bundle-branch block; N40.0 Benign prostatic hyperplasia without lower urinary tract symptoms; G30.9 Alzheimer's disease, unspecified; F02.80 Dementia in other diseases classified elsewhere, unspecified severity, without behavioral disturbance, psychotic disturbance, mood disturbance, and anxiety; M19.90 Unspecified osteoarthritis, unspecified site; E88.09 Other disorders of plasma-protein metabolism, not elsewhere classified; E83.42 Hypomagnesemia; E87.6 Hypokalemia; I49.3 Ventricular premature depolarization; K44.9 Diaphragmatic hernia without obstruction or gangrene; Z20.828 Contact with and (suspected) exposure to other viral communicable diseases; Z98.42 Cataract extraction status, left eye; Z87.891 Personal history of nicotine dependence; Z86.73 Personal history of transient ischemic attack (TIA), and cerebral infarction without residual deficits; Z79.899 Other long term (current) drug therapy

== ENCOUNTER → 2020-06-08 | Outpatient (CLI) | payer OTHER ==
[~2020-06-08] MED LIST changes: +ASA81BEC PO; +CEFTRIAXON1 GM/50 ML IV; +GENTLE LAXATIVE5 M1 PO; +LOSARTAN-HCTZ1 EAC2 PO; +NORVASC5 MG PO; +PROSCAR 5MG TABL5 M1 PO; +PROTONIX40 M2 PO; +TRIAMTERENE/HCT1 CA1 PO
[2020-06-08 13:52] LABS: ABSOLUTE BASOPHILS 0.1 thou/uL (0.0-0.2); ABSOLUTE LYMPHOCYTES 1.2 thou/uL (0.8-5.3); ABSOLUTE MONOCYTES 0.8 thou/uL (0.0-1.2); ABSOLUTE NEUTROPHILS 5.7 thou/uL (1.6-8.1); EOSINOPHILS 0.5 %; HEMOGLOBIN 11.9 gm/dL (14.0-18.0); LYMPHOCYTES 15.2 %; MCH 29.1 pg (26.0-34.0); MCHC 34.1 g/dL (28.0-37.0); MCV 85.4 fL (80.0-100.0); MONOCYTES 10.5 %; MPV 7.4 fl. (7.2-11.1); NUCLEATED RBCS 0 /100WBC; PLATELET COUNT* 369 thou/uL (150-400); POLYS 72.8 %; RBC 4.09 mil/uL (4.50-6.00); RDW-CV 15.4 % (10.5-14.5); WBC 7.8 thou/uL (4.0-11.0)
== END ==
LOC: M.LAB 13:28
PROVIDERS: ATTEND Surgery
DX: K81.0 Acute cholecystitis (principal)